=== PATIENT | female | born 1960 | race Caucasian/White ===

== ENCOUNTER → 2019-08-18 | Outpatient (CLI) | payer BC ==
[~2019-08-18] MED LIST: CELEBREX200 MG PO; FE-TABS325 MG PO; FOLIC ACID 40400 MCG PO; LORTAB 5/500 501 TAB PO; NASACORT AQ N16.5 GM NS; SINGULAIR10 MG PO; VITAMIN C PO
== END ==
LOC: COL.RAD 09:00
DX: M25.571 Pain in right ankle and joints of right foot (principal)
CPT/HCPCS: J3301; Q9967